=== PATIENT | male | born 1950 | race Caucasian/White ===

== ENCOUNTER 2019-11-17 18:39 | Emergency (ER) | payer OTHER ==
[~2019-11-17] VITALS: Ht 180.3 cm; Wt 77.1 kg
[2019-11-17 19:17] LABS: ABSOLUTE NEUTROPHILS 8.2 thou/uL (1.4-8.2); BASOPHILS 0.2 % (0.0-2.0); EOSINOPHILS 0.4 % (0.0-3.0); HEMOGLOBIN 13.5 gm/dL (14.0-18.0); LYMPHOCYTES 10.2 % (24.0-44.0); MCH 30.3 pg (26.0-34.0); MCHC 33.8 g/dL (28.0-37.0); MCV 89.7 fL (80.0-100.0); MONOCYTES 6.9 % (1.0-8.0); PLATELET COUNT 176 thou/uL (150-400); POLYS 82.3 % (36.0-66.0); RBC 4.45 mil/uL (4.50-6.00); RDW 14.1 % (10.5-14.5)
[2019-11-17 19:21] LABS: CALCIUM 9.3 mg/dL (8.5-10.1); CREATININE 0.9 mg/dL (0.7-1.3); POTASSIUM 3.4 mmol/L (3.5-5.1)
[2019-11-17] MEDS ORDERED: NASAL DECONGEST30 M3 PO (19:26)
[2019-11-17 19:27] LABS: TOTAL BILIRUBIN 0.6 mg/dL (0.2-1.0); TOTAL PROTEIN 7.2 g/dL (6.4-8.2)
[2019-11-17] MEDS ORDERED: HYDRALAZINE 5050 MG PO (19:27)
[2019-11-17] MEDS ORDERED: DOCUSATE SODIU100 MG PO (19:28)
[2019-11-17] MEDS ORDERED: SERTRALINE HCL100 MG PO (19:28)
[2019-11-17] MEDS ORDERED: VENLAFAXINE HC150 M1 PO (19:29)
[2019-11-17] MEDS ORDERED: MAGNESIUM OXID400 M2 PO (19:30)
[2019-11-17] MEDS ORDERED: FLONASE 0.05%50 MCG NARES (19:30)
[2019-11-17] MEDS ORDERED: FLOMAX0.4 MG PO (19:31)
[2019-11-17] MEDS ORDERED: FOLIC ACID1 MG PO (19:31)
[2019-11-17] MEDS ORDERED: AMLODIPINE BESY10 MG PO (19:33)
[2019-11-17] MEDS ORDERED: PLAVIX 75 MG TA75 MG PO (19:34)
[2019-11-17] MEDS ORDERED: LEVO-T100 MCG PO (19:34)
[2019-11-17] MEDS ORDERED: TROSPIUM CHLORI20 MG PO (19:35)
[2019-11-17] MEDS ORDERED: AREDS 2 (19:36)
[2019-11-17] MEDS ORDERED: SAMBUCOL (19:37)
[2019-11-17] MEDS ORDERED: LIPITOR40 MG PO (19:37)
[2019-11-17] MEDS ORDERED: PROSCAR 5MG TABL5 M1 PO (19:38)
[2019-11-17] MEDS ORDERED: ZYRTEC10 M5 PO (19:39)
[2019-11-17 20:59] VITALS: BP 129/65
[2019-11-17] MEDS ORDERED: ONDANSETRON ODT4 MG PO (21:00)
== END 2019-11-17 21:30 | disposition home or self-care (01) ==
LOC: ER 18:39
PROVIDERS: Nurse Practitioner Family
DX: K52.9 Noninfective gastroenteritis and colitis, unspecified (principal); Z20.828 Contact with and (suspected) exposure to other viral communicable diseases; Z79.01 Long term (current) use of anticoagulants; Z79.899 Other long term (current) drug therapy; Z88.8 Allergy status to other drugs, medicaments and biological substances

== ENCOUNTER 2019-11-19 19:15 | Emergency (ER) | payer OTHER ==
[~2019-11-19] VITALS: Ht 182.9 cm; Wt 90.7 kg
[~2019-11-19 19:15] MED LIST: AMLODIPINE BESY10 MG PO; AREDS 2; DOCUSATE SODIU100 MG PO; FLOMAX0.4 MG PO; FLONASE 0.05%50 MCG NARES; FOLIC ACID1 MG PO; HYDRALAZINE 5050 MG PO; LEVO-T100 MCG PO; LIPITOR40 MG PO; MAGNESIUM OXID400 M2 PO; NASAL DECONGEST30 M3 PO; ONDANSETRON ODT4 MG PO; PLAVIX 75 MG TA75 MG PO; PROSCAR 5MG TABL5 M1 PO; SAMBUCOL; SERTRALINE HCL100 MG PO; TROSPIUM CHLORI20 MG PO; VENLAFAXINE HC150 M1 PO; ZYRTEC10 M5 PO
[2019-11-19 20:16] VITALS: BP 131/70
== END 2019-11-19 20:17 | disposition home or self-care (01) ==
LOC: ER 19:15
DX: R09.89 Other specified symptoms and signs involving the circulatory and respiratory systems (principal); Z79.899 Other long term (current) drug therapy; Z88.8 Allergy status to other drugs, medicaments and biological substances